=== PATIENT | female | born 1980 | race Caucasian/White ===

== ENCOUNTER 2024-08-04 04:02 | Day surgery (SDC) | payer OTHER ==
[2024-08-01 11:27] VITALS: BMI 25.4
[2024-08-04] MEDS ORDERED: DEXAMETHASONE SOD PHOSPHATE 4 MG/1 ML VIAL ONE (07:46)
[2024-08-04] MEDS ORDERED: LIDOCAINE HCL/PF 2% SDV 5ML VIAL ONE (07:46)
[2024-08-04] MEDS ORDERED: METOCLOPRAMIDE HCL INJECTION 10 MG/2 ML VIAL ONE (07:46)
[2024-08-04] MEDS ORDERED: ONDANSETRON 4 MG/2 ML VIAL ONE (07:46)
[2024-08-04] MEDS ORDERED: KETOROLAC TROMETHAMINE 30 MG/1 ML VIAL ONE (07:46)
[2024-08-04] MEDS ORDERED: SUCCINYLCHOLINE CHLORIDE 200 MG/10 ML SYRINGE ONE (07:52)
[2024-08-04] MEDS ORDERED: PROPOFOL 20 ML ONE ×2 (07:53→10:01)
[2024-08-04] MEDS ORDERED: ROCURONIUM BROMIDE 50 MG/5 ML SYRINGE ONE (07:53)
[2024-08-04] MEDS ORDERED: MIDAZOLAM HCL 2 MG/2 ML SINGLE DOSE VIAL ONE (07:54)
[2024-08-04] MEDS ORDERED: BUPIVACAINE HCL/PF 0.5% (5MG/ML) 10 ML VIAL ONE (08:27)
[2024-08-04] MEDS ORDERED: ACETAMINOPHEN INJECTION 100 ML ONE (08:52)
[2024-08-04] MEDS ORDERED: ONDANSETRON 4 MG/2 ML VIAL IVPUSH PRN (08:56)
[2024-08-04] MEDS ORDERED: oxyCODONE HCL 5 MG TABLET PO PRN (08:56)
[2024-08-04] MEDS ORDERED: LACTATED RINGERS SOLUTION 1,000 ML IV SCH (09:00)
[2024-08-04] MEDS ORDERED: ceFAZolin SODIUM 1 GM VIAL ONE (09:39)
[2024-08-04] MEDS: ceFAZolin 2 GRAM PREMIX BAG IVPB ONE (09:40)
[2024-08-04] MEDS ORDERED: HYDROmorphone HCl 2 MG/ML VIAL ONE (09:53)
[2024-08-04] MEDS ORDERED: SUGAMMADEX SODIUM 200 MG/2 ML VIAL ONE (10:02)
[2024-08-04] MEDS: BUPIVACAINE HCL/PF 0.5% (5MG/ML) 10 ML VIAL IJ ONE ×2 (10:03)
[2024-08-04 11:38] VITALS: RESP 18
[2024-08-04 13:17] VITALS: BP 100/60; PULSE 77; TEMP 97.7
== END 2024-08-04 13:05 | disposition home or self-care (01) ==
LOC: JASU-SURG 04:02
PROVIDERS: ATTEND Obstetrics & Gynecology
PROC: 0UT64ZZ Resection of Left Fallopian Tube, Percutaneous Endoscopic Approach (ICD-10-PCS; principal; 2024-08-04 09:00)
DX: Z30.2 Encounter for sterilization (principal)
CPT/HCPCS: 81025; 86850; 86900; 86901; 88305-TC; 94760; J0131